=== PATIENT | female | born 1965 | race Caucasian/White ===

== ENCOUNTER 2018-11-02 18:46 | Emergency (ER) | payer MEDICAID ==
[~2018-11-02] VITALS: Ht 170.2 cm; Wt 96.2 kg
--- NOTE | 2018-11-02 19:51 | NUR ---
BIB FAMILY W/ C/O RUQ ABD PAIN X 1 DAY. -N/V. URINE COLLECTED AND SENT TO THE LAB. WILL CONT TO MONITOR ,
[2018-11-02] MEDS ORDERED: ONDANSETRON HCL/PF 4 MG/2 ML VIAL ONE (19:54)
[2018-11-02] MEDS ORDERED: HYDROMORPHONE 1 MG/1 ML DISP.SYRIN ONE ×3 (19:54→23:04)
[2018-11-02] MEDS ORDERED: ONDANSETRON HCL/PF 4 MG/2 ML VIAL IVP ONE (20:00)
[2018-11-02] MEDS ORDERED: IV NS 0.9% 1,000 ML BAG IV ONE (20:00)
[2018-11-02] MEDS ORDERED: HYDROMORPHONE INJ 2 MG/ML DISP.SYRIN IV ONE (20:00)
--- NOTE | 2018-11-02 20:08 | NUR ---
US TECH AT THE BED SIDE
[2018-11-02 20:13] LABS: BASOPHILS % (AUTO) 0.2 % (0.0-2.0); EOSINOPHILS % (AUTO) 0.6 % (0.0-6.0); HEMATOCRIT 39 % (33-45); HEMOGLOBIN 12.6 g/dL (11.5-14.8); LYMPHOCYTES % (AUTO) 10.6 % (20.0-44.0); MEAN CORPUSCULAR HGB CONC 33 g/dl (31.0-36.0); MEAN CORPUSCULAR VOLUME 92 fL (82-100); MONOCYTES # (AUTO) 0.8 /CMM (0.1-1.30); NEUTROPHILS # (AUTO) 7.6 /CMM (1.8-8.9); NEUTROPHILS % (AUTO) 79.6 % (43.0-81.0); PLATELET COUNT (AUTO) 183 /CMM (150-450); RED BLOOD CELL COUNT(AUTO) 4.19 MIL/uL (4.0-5.2); WHITE BLOOD COUNT (AUTO) 9.5 K/uL (4.3-11.0)
[2018-11-02 20:19] LABS: CALCIUM, SERUM 10.6 mg/dL (8.5-10.1); POTASSIUM 4.7 mmol/L (3.5-5.1)
[2018-11-02 20:26] LABS: ALBUMIN 3.8 g/dL (3.4-5.0); BILIRUBIN,DIRECT 0.1 mg/dL (0.0-0.2); BILIRUBIN,TOTAL 0.4 mg/dL (0.2-1.0)
[2018-11-02] MEDS ORDERED: HYDROMORPHONE 1 MG/1 ML DISP.SYRIN IV ONE ×2 (21:00→23:30)
[2018-11-02 21:16] LABS: BILIRUBIN,URINE NEGATIVE (NEGATIVE); BLOOD, URINE 2+ Ery/uL (NEGATIVE); COLOR,URINE YELLOW (YELLOW); KETONES,URINE NEGATIVE (NEGATIVE); LEUKOCYTE ESTERASE ,URINE NEGATIVE (NEGATIVE); NITRITE, URINE NEGATIVE (NEGATIVE); PH,URINE 5.5 (5.0-8.0); PROTEIN,URINE 1+ mg/dl (NEGATIVE); UGLUCOSE NEGATIVE (NEGATIVE); UROBILINOGEN,URINE 0.2 EU/dL (0.2)
[2018-11-02 21:25] LABS: APPEARANCE,URINE HAZY (CLEAR); BACTERIA,URINE Rare /HPF (None Seen); SQUAMOUS EPITHELIAL CELL,UR Moderate /HPF (None Seen)
--- NOTE | 2018-11-02 21:41 | NUR ---
Patient is resting comfortably in bed with eyes closed. Easily aroused. VSS
[2018-11-02] MEDS ORDERED: CINA30TA2 PO (22:26)
[2018-11-02] MEDS ORDERED: MYCO180T PO (22:26)
[2018-11-02] MEDS ORDERED: SIMV40TA5 PO (22:26)
[2018-11-02] MEDS ORDERED: ALLO100T PO (22:26)
[2018-11-02] MEDS ORDERED: FENO145T35 PO (22:26)
[2018-11-02] MEDS ORDERED: PRED5TAB48 PO (22:26)
[2018-11-02] MEDS ORDERED: TACR1CAP GT (22:26)
--- NOTE | 2018-11-02 23:29 | NUR ---
PICKED UP FOR VQ SCAN
--- NOTE | 2018-11-03 00:25 | NUR ---
BACK FROM VQ SCAN
--- NOTE | 2018-11-03 00:27 | NUR ---
[facility] RM 608 GIVEN. CALL [phone] FOR REPORT
--- NOTE | 2018-11-03 00:42 | NUR ---
CALLED [facility] TWICE TO GIVE REPORT W/ NO ANSWER.
[2018-11-03] MEDS ORDERED: HYDROMORPHONE 1 MG/1 ML DISP.SYRIN ONE ×3 (00:48→03:22)
--- NOTE | 2018-11-03 00:50 | NUR ---
AMBULANCE ETA WITH [facility] IS [id number]
[2018-11-03] MEDS ORDERED: LORAZEPAM INJ 2 MG/ML VIAL IV ONE (01:00)
[2018-11-03] MEDS ORDERED: LORAZEPAM INJ 2 MG/ML VIAL ONE (01:00)
[2018-11-03] MEDS ORDERED: HYDROMORPHONE 1 MG/1 ML DISP.SYRIN IV ONE ×2 (01:00→03:30)
--- NOTE | 2018-11-03 01:02 | NUR ---
RSTING IN BED COMFORTABLY. WILL HOLD ON TO THE ATIVAN TEMPORARY. MADE AWARE.
--- NOTE | 2018-11-03 01:15 | NUR ---
LEFT FOR CT SCAN
--- NOTE | 2018-11-03 01:23 | NUR ---
RE[PORT GIVEN TO MIRIAN AT [facility]
--- NOTE | 2018-11-03 01:30 | NUR ---
BACK FRPM CT
[2018-11-03] MEDS ORDERED: ONDANSETRON HCL/PF 4 MG/2 ML VIAL ONE (03:29)
[2018-11-03] MEDS ORDERED: ONDANSETRON HCL/PF - ER 4 MG/2 ML VIAL IV ONE (03:30)
[2018-11-03 03:33] VITALS: BP 146/92
--- NOTE | 2018-11-03 03:45 | NUR ---
pt was picked up under acls protocol in stable condition. 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 all records including a CD of all CT scans and US was sent w/ the pt.
== END 2018-11-03 04:20 | disposition short-term general hospital (02) ==
LOC: ER 18:46
DX: T86.11 Kidney transplant rejection (principal); R10.11 Right upper quadrant pain; R79.1 Abnormal coagulation profile
CPT/HCPCS: 36415; 71045; 71250; 74176; 76705; 78582; 80048; 80076; 81001; 83690; 84484; 85025; 85378; 85730; 87081; 87086; 93005; 93970; 96374; 96375; 96376 ×2; 99285; A9540; A9567; J1170 ×5; J2060; J2405 ×2; J7030; 81000-TC

== ENCOUNTER 2024-11-04 00:09 | Inpatient (IN) | payer MEDICARE, MEDICAID ==
[~2024-11-04] VITALS: Ht 170.2 cm; Wt 90.7 kg
[~2024-11-04 00:09] MED LIST: ALLO100T PO; CINA30TA2 PO; FENO145T21 PO; MYCO180T PO; PRED5TAB48 PO; SIMV-49 PO; TACR1CAP2 GT
[2024-11-04] MEDS ORDERED: PANTOPRAZOLE 40 MG VIAL ONE (00:38)
[2024-11-04] MEDS ORDERED: ONDANSETRON HCL/PF 4 MG/2 ML VIAL ONE (00:39)
[2024-11-04] MEDS ORDERED: HYDROMORPHONE 1 MG/1 ML DISP.SYRIN ONE (00:39)
[2024-11-04] MEDS: PANTOPRAZOLE 40 MG VIAL IV ONE (01:30)
[2024-11-04] MEDS: ONDANSETRON HCL/PF 4 MG/2 ML VIAL IV ONE (01:30)
[2024-11-04] MEDS: HYDROMORPHONE 1 MG/1 ML DISP.SYRIN IV ONE (01:40)
[2024-11-04] MEDS ORDERED: HYDROCODONE/APAP 5/325MG TABLET ONE ×2 (01:57→07:55)
[2024-11-04 02:02] LABS: PLATELET COUNT (AUTO) 229 K/uL (150-450); RED BLOOD CELL COUNT(AUTO) 2.59 MIL/uL (4.0-5.2); RED CELL DISTRIBUTION WIDTH 15.1 % (11.5-15.0); WHITE BLOOD COUNT (AUTO) 10.3 K/uL (4.3-11.0)
[2024-11-04] MEDS: HYDROCODONE/APAP 5/325MG TABLET PO ONE (02:03)
[2024-11-04 02:12] LABS: CALCIUM, SERUM 8.3 mg/dL (8.5-10.1); SODIUM SERUM 142.0 mmol/L (136-145); UREA NITROGEN, BLOOD 61.0 mg/dL (7-18)
[2024-11-04 02:16] LABS: CREATININE 12.0 mg/dL (0.6-1.3); INR 0.94 (0.91-1.10)
[2024-11-04 02:18] LABS: ASPARTATE AMINOTRANSFERASE 20.0 U/L (15-37); TOTAL PROTEIN, SERUM 7.4 g/dL (6.4-8.2)
[2024-11-04] MEDS ORDERED: CEFTRIAXONE 1GM BAG (ER ONLY) 50 ML IV ONE (03:33)
[2024-11-04] MEDS: CEFTRIAXONE 1 G in IV D5W 50 ML IV ONE ×2 (03:46→12:40)
[2024-11-04] MEDS ORDERED: ASPI-1169 PO (04:01)
[2024-11-04] MEDS ORDERED: SEVE800T8 PO (04:01)
[2024-11-04] MEDS ORDERED: ROSU20TA2 PO (04:01)
[2024-11-04] MEDS ORDERED: CALC667T8 PO (04:01)
[2024-11-04] MEDS ORDERED: CLOP75TA15 PO (04:01)
[2024-11-04] MEDS ORDERED: ANAS1TAB50 PO (04:01)
[2024-11-04 04:17] LABS: PROTEIN, BODY FLUID 1.2 G/DL
[2024-11-04 04:20] LABS: WBC, BODY FLUID 7837 /cu. mm. (0-200)
[2024-11-04 05:01] LABS: APPEARANCE,SPUN,BODY FLUID CLOUDY (CLEAR)
[2024-11-04 05:05] LABS: TOTAL VOLUME,BODY FLUID 30 mL
[2024-11-04 05:22] LABS: MONOCYTES,BODY FLUID 7 %
[2024-11-04] MEDS: HYDROCODONE/APAP 5/325MG TABLET PO PRN (07:57)
[2024-11-04 08:15] VITALS: BP 122/65; TEMP 98.5; O2SAT 98
[2024-11-04 08:20] VITALS: BP 120/63; TEMP 98.5; O2SAT 95
[2024-11-04] MEDS ORDERED: ONDANSETRON HCL/PF 4 MG/2 ML VIAL IVP PRN (12:00)
[2024-11-04] MEDS ORDERED: DOSING PER PHARMACY-VANCOMYCIN IV XX PRN (12:00)
[2024-11-04] MEDS ORDERED: Z GUARD REMEDY 4 OZ OINT TP PRN (12:00)
[2024-11-04] MEDS ORDERED: VANCOMYCIN POST DIALYSIS 500MG IV PRN (12:30)
[2024-11-04] MEDS: HYDROMORPHONE 1 MG/1 ML DISP.SYRIN IV PRN (12:38)
[2024-11-04 12:56] LABS: OCCULT BLOOD STOOL NEGATIVE (NEGATIVE)
[2024-11-04] MEDS: PANTOPRAZOLE 40 MG VIAL IV SCH (13:04)
[2024-11-04] MEDS: VANCOMYCIN 1 GM in IV D5W 250ml IV ONE (13:05)
[2024-11-04 15:48] VITALS: BP 122/63; TEMP 99.7; O2SAT 96
[2024-11-04] MEDS: ACETAMINOPHEN 325 MG TABLET PO PRN (18:07)
[2024-11-04 19:54] LABS: APPEARANCE,URINE CLEAR (CLEAR); BLOOD, URINE NEGATIVE Ery/uL (NEGATIVE); LEUKOCYTE ESTERASE ,URINE NEGATIVE (NEGATIVE); NITRITE, URINE NEGATIVE (NEGATIVE); UGLUCOSE TRACE mg/dL (NEGATIVE)
[2024-11-04 20:00] VITALS: BP 129/69; TEMP 99.1; O2SAT 96
[2024-11-04 20:42] LABS: ADD URINE CULTURE NO
[2024-11-04] MEDS: MEROPENEM 500MG/NS 50 ML PB IV ONE (20:59)
[2024-11-04] MEDS: MEROPENEM 500 MG in IV NS 0.9% 50 ML IV SCH (21:05)
[2024-11-05 07:07] LABS: PLATELET COUNT (AUTO) 217 K/uL (150-450); RED BLOOD CELL COUNT(AUTO) 2.38 MIL/uL (4.0-5.2); RED CELL DISTRIBUTION WIDTH 15.3 % (11.5-15.0); WHITE BLOOD COUNT (AUTO) 8.4 K/uL (4.3-11.0)
[2024-11-05 08:00] VITALS: BP 131/72; TEMP 99.1; O2SAT 92
[2024-11-05] MEDS ORDERED: CEFTRIAXONE 2 G in IV D5W 100 ML IV SCH (12:00)
== END 2024-11-05 10:00 | disposition left against medical advice (07) | DRG 371 ==
LOC: ER 00:13 → MS IN 05:46 → MED 07:56
PROVIDERS: ADMIT Nurse Practitioner Family; ATTEND Nurse Practitioner Family
DX: K65.2 Spontaneous bacterial peritonitis (principal); N18.6 End stage renal disease; K92.2 Gastrointestinal hemorrhage, unspecified; D62 Acute posthemorrhagic anemia; T86.12 Kidney transplant failure; E44.0 Moderate protein-calorie malnutrition; I25.10 Atherosclerotic heart disease of native coronary artery without angina pectoris; Z95.5 Presence of coronary angioplasty implant and graft; Z79.899 Other long term (current) drug therapy; Z79.02 Long term (current) use of antithrombotics/antiplatelets; Z79.82 Long term (current) use of aspirin; D63.8 Anemia in other chronic diseases classified elsewhere; E87.5 Hyperkalemia; E78.5 Hyperlipidemia, unspecified; Y83.8 Other surgical procedures as the cause of abnormal reaction of the patient, or of later complication, without mention of misadventure at the time of the procedure; Y92.009 Unspecified place in unspecified non-institutional (private) residence as the place of occurrence of the external cause; E88.09 Other disorders of plasma-protein metabolism, not elsewhere classified; Z53.29 Procedure and treatment not carried out because of patient's decision for other reasons; Z99.2 Dependence on renal dialysis; Z91.158 Patient's noncompliance with renal dialysis for other reason; Z79.811 Long term (current) use of aromatase inhibitors; E66.9 Obesity, unspecified; Z68.31 Body mass index [BMI] 31.0-31.9, adult; C50.919 Malignant neoplasm of unspecified site of unspecified female breast; M89.8X9 Other specified disorders of bone, unspecified site
CPT/HCPCS: 36415; 71045-TC; 80053-TC; 80202-TC; 81001; 82272-TC; 83735-TC; 84484-TC; 85025-TC; 85027-TC; 85610-TC; 86140-TC; 86850-TC; 87040-TC; 87070-TC; 87081-TC; 89051-TC; A4223; G0378; J0696; J1171; J2185; J2405; J2470; J3373; J7030; J7040; J7050; J7060

== ENCOUNTER 2025-03-12 21:52 | Emergency (ER) | payer MEDICARE, OTHER ==
[~2025-03-12] VITALS: Ht 172.7 cm; Wt 81.6 kg
[~2025-03-12 21:52] MED LIST changes: -ALLO100T PO; +ANAS1TAB50 PO; +ASPI-1169 PO; -CINA30TA2 PO; +CLOP75TA15 PO; -FENO145T21 PO; -MYCO180T PO; -PRED5TAB48 PO; +ROSU20TA2 PO; +SEVE800T8 PO; -SIMV-49 PO; -TACR1CAP2 GT
[2025-03-12] MEDS ORDERED: ONDANSETRON HCL/PF 4 MG/2 ML VIAL IVP ONE (22:30)
[2025-03-12] MEDS ORDERED: ONDANSETRON HCL/PF 4 MG/2 ML VIAL ONE (22:31)
[2025-03-12 22:59] LABS: PLATELET COUNT (AUTO) 185 K/uL (150-450); RED BLOOD CELL COUNT(AUTO) 2.93 MIL/uL (4.0-5.2); RED CELL DISTRIBUTION WIDTH 14.9 % (11.5-15.0); WHITE BLOOD COUNT (AUTO) 5.1 K/uL (4.3-11.0)
[2025-03-12 23:07] LABS: CALCIUM, SERUM 7.5 mg/dL (8.5-10.1); SODIUM SERUM 135 mmol/L (136-145)
[2025-03-12] MEDS ORDERED: ONDANSETRON 4 MG TAB.RAPDIS ONE (23:12)
[2025-03-12] MEDS ORDERED: ACETAMINOPHEN ES 500 MG TABLET ONE (23:12)
[2025-03-12] MEDS: ACETAMINOPHEN ES 500 MG TABLET PO ONE (23:17)
[2025-03-12] MEDS: ONDANSETRON 4 MG TAB.RAPDIS SL ONE (23:17)
[2025-03-12 23:19] LABS: ASPARTATE AMINOTRANSFERASE 16 U/L (15-37); NT-PRO BNP 17135 pg/mL (0-125); TOTAL PROTEIN, SERUM 7.4 g/dL (6.4-8.2); UREA NITROGEN, BLOOD 60 mg/dL (7-18)
[2025-03-12 23:20] LABS: CREATININE 15.9 mg/dL (0.6-1.3)
[2025-03-13 00:41] VITALS: TEMP 99
[2025-03-13 01:21] VITALS: BP 118/64; O2SAT 98
== END 2025-03-13 01:21 | disposition home or self-care (01) ==
LOC: ER 21:54
DX: R51.9 Headache, unspecified (principal); R53.1 Weakness; I13.11 Hypertensive heart and chronic kidney disease without heart failure, with stage 5 chronic kidney disease, or end stage renal disease; I25.10 Atherosclerotic heart disease of native coronary artery without angina pectoris; R06.02 Shortness of breath; N18.6 End stage renal disease; Z79.02 Long term (current) use of antithrombotics/antiplatelets; Z79.811 Long term (current) use of aromatase inhibitors; Z79.899 Other long term (current) drug therapy; Z94.0 Kidney transplant status; Z95.5 Presence of coronary angioplasty implant and graft; Z99.2 Dependence on renal dialysis; Z20.822 Contact with and (suspected) exposure to COVID-19
CPT/HCPCS: 99285; 70450; 71045; 87426; 93005; 85025; 80048; 80076; 36415; 84484; 83880; Q0162; J2405